=== PATIENT | female | born 1955 | race Caucasian/White ===

== ENCOUNTER 2017-06-10 08:35 | Day surgery (SDC) | payer BC ==
[2017-06-10] MEDS ORDERED: LACTATED RINGERS 1,000 ML IV ONE (08:37)
[2017-06-10] MEDS ORDERED: fentaNYL 100 MCG/2 ML VIAL IVP ONE (09:43)
[2017-06-10] MEDS ORDERED: MIDAZOLAM 2 MG/2 ML VIAL IVP ONE (09:43)
[2017-06-10 11:17] VITALS: BP 114/67
== END 2017-06-10 08:36 | disposition home or self-care (01) ==
LOC: SDS 08:35
PROVIDERS: ATTEND Surgery
PROC: 0DJD8ZZ Inspection of Lower Intestinal Tract, Via Natural or Artificial Opening Endoscopic (ICD-10-PCS; principal; 2017-06-10 09:45)
DX: Z12.11 Encounter for screening for malignant neoplasm of colon (principal); R19.7 Diarrhea, unspecified; K57.30 Diverticulosis of large intestine without perforation or abscess without bleeding; K64.8 Other hemorrhoids; I10 Essential (primary) hypertension; E78.5 Hyperlipidemia, unspecified; F32.9 Major depressive disorder, single episode, unspecified; F41.0 Panic disorder [episodic paroxysmal anxiety]; Z90.710 Acquired absence of both cervix and uterus
CPT/HCPCS: 45378; J7120

== ENCOUNTER 2023-09-03 06:53 | Day surgery (SDC) | payer MEDICARE, BC ==
[2023-09-03] MEDS ORDERED: LACTATED RINGERS 1,000 ML IV ONE ×2 (07:02→09:00)
--- NOTE | 2023-09-03 08:06 | ANESTHESIA ---
Pre-Anesthesia VS, & Labs - Diagnosis GERD - Procedure EGD Vital Signs: Temp Pulse Resp BP Pulse Ox O2 Flow Rate 36.1 C L 69 12 109/69 100 09/03/23 07:15 09/03/23 07:15 09/03/23 07:15 09/03/23 07:15 09/03/23 07:15 Height: 5 ft 3 in Weight (kg): 66 kg Body Mass Index: 25.7 BMI Classification: Overweight - NPO >8 hours - Is Patient ?: No Home Medications and Allergies Home Medications: Ambulatory Orders Alerflo 1 each ALE DAILY 09/02/23 methocarbamoL [Robaxin] 1 tab PO BID 09/03/23 Pravastatin Sodium 20 mg PO DAILY 06/09/17 Trazodone HCl 50 mg PO DAILY 06/09/17 Alerflo 1 each ALE DAILY 09/02/23 methocarbamoL [Robaxin] 1 tab PO BID 09/03/23 Allergies/Adverse Reactions: Allergies Allergy/AdvReac Type Severity Reaction Status Date / Time Sulfa (Sulfonamide Allergy Edema Verified 06/09/17 14:22 Antibiotics) amoxicillin [From Augmentin] AdvReac Unknown Verified 09/03/23 07:33 ciprofloxacin [From Cipro] AdvReac Unknown Verified 09/03/23 07:32 clavulanic acid AdvReac Unknown Verified 09/03/23 07:33 [From Augmentin] Anes History & Medical History - Anesthetic History Anesthesia Complications: reports: No previous complications Family history of Anesthesia Complications: Denies Family history of Malignant Hyperthermia: Denies - Medical History Cardiovascular: reports: High cholesterol Pulmonary: reports: None Gastrointestinal: Urinary: reports: None Musculoskeletal: reports: Osteoporosis, Chronic back pain Endocrine/Autoimmune: reports: None Skin: reports: None - Surgical History General: reports: Appendectomy Urologic: reports: Bladder surgery Gynecologic: reports: Hysterectomy, Oophrectomy Exam General: Alert, Oriented x3, Cooperative Dental: WNL Mouth Openin Fingerbreadth Neck Mobility: Normal Mallampati classification: I Thyromental Distance: 4-6 cm Respiratory: Lungs clear Cardiovascular: Regular rate Plan Anesthesia Type: General, Total IV Consent for Procedure(s) Verified and Reviewed: Yes Code Status: Attempt Resuscitation ASA classification: 2-Mild systemic disease Is this case an emergency?: No
[2023-09-03] MEDS ORDERED: PROPOFOL 200 MG/20 ML VIAL IVP ONE (08:33)
[2023-09-03] MEDS ORDERED: LIDOCAINE-MPF 2% 5 ML VIAL ONE (08:35)
[2023-09-03 09:25] VITALS: BP 111/61; O2SAT 100
--- NOTE | 2023-09-03 11:20 | ANESTHESIA POST OP EVALUATION ---
Anesthesia Post Eval - Post Anesthesia Eval Vitals: Last Vital Signs Temp 36.4 C L 09/03/23 09:22 Pulse 65 09/03/23 09:22 Resp 16 09/03/23 09:22 BP 111/61 09/03/23 09:22 Pulse Ox 100 09/03/23 09:22 O2 Flow Rate CV Function Including HR & BP: Stable Pain Control: Satisfactory Nausea & Vomiting: Negative Mental Status: Baseline Respiratory Status: Airway Patent Hydration Status: Satisfactory Anesthesia Complications: None
== END 2023-09-03 06:54 | disposition home or self-care (01) ==
LOC: SDS 06:53
PROVIDERS: ATTEND Surgery
PROC: 0DB48ZX Excision of Esophagogastric Junction, Via Natural or Artificial Opening Endoscopic, Diagnostic (ICD-10-PCS; principal; 2023-09-03 08:15)
DX: K21.9 Gastro-esophageal reflux disease without esophagitis (principal); K44.9 Diaphragmatic hernia without obstruction or gangrene
CPT/HCPCS: 43239; J7120